=== PATIENT | male | born 1940 | race Caucasian/White ===

== ENCOUNTER → 2016-11-11 | Outpatient (CLI) | payer MEDICARE, OTHER ==
[~2016-11-11] MED LIST: 3N1 COMMODE MC; ASPI-781 PO; ASPI325T32 PO; DOCU-144 PO; METO25TA7 PO; OXYC-481 PO; RABE20TA5 PO; SIMV40TA2 PO; TRAM50TA2 PO; WALK1EAC23 MC
--- NOTE | 2016-11-14 15:30 | RADRPT ---
PROCEDURE: Right knee radiographs. CLINICAL INDICATION: Right knee pain. Postop. TECHNIQUE: Three views. Weight bearing. Frontal, lateral, and patellar view. COMPARISON: 09/23/2015. FINDINGS: There is no fracture or dislocation. There is a small joint effusion. 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 There is no lytic or blastic lesion. IMPRESSION: 1. Small joint effusion. 2. Otherwise unremarkable postoperative appearance of the right knee. RPTAT: QQ .Eduardo Stockton MD, Date Time Electronically viewed and signed by .Eduardo Stockton MD, on 11/14/2016 15:29 .R/
--- NOTE | 2016-11-15 09:07 | RADRPT ---
PROCEDURE: XR Left Hip and pelvis. CLINICAL INDICATION: Left hip pain. Pelvic pain. Postop. TECHNIQUE: Three views. Frontal pelvis. Frontal and lateral left hip. COMPARISON: 11/04/2015. FINDINGS: There is no fracture or dislocation. The soft tissues are normal. There is a left hip total arthroplasty which appears satisfactory. The right hip is grossly normal. There is no lytic or blastic lesion. The upper pelvis is not included on the image. IMPRESSION: 1. Satisfactory postoperative appearance of the left hip. 2. Otherwise unremarkable study. RPTAT: QQ .Eduardo Stockton MD, MD Date Time Electronically viewed and signed by .Eduardo Stockton MD, MD on 11/15/2016 09:07 .R/
== END | disposition home or self-care (01) ==
LOC: HKI 15:09
PROVIDERS: ATTEND Orthopaedic Surgery
DX: Z09 Encounter for follow-up examination after completed treatment for conditions other than malignant neoplasm (principal); Z96.651 Presence of right artificial knee joint; Z96.642 Presence of left artificial hip joint
CPT/HCPCS: 73502; 73562; G0463